=== PATIENT | male | born 1960 | race African-American/Black ===

== ENCOUNTER 2020-05-09 12:02 | Inpatient (IN) | payer MEDICAID, OTHER ==
[~2020-05-09] VITALS: Ht 180.3 cm; Wt 84.1 kg
[2020-05-09 13:17] LABS: BASOPHILS % (AUTO) 0.4 % (0.0-2.0); EOSINOPHILS % (AUTO) 1.3 % (1.0-6.0); HEMATOCRIT 47.4 % (41-53); HEMOGLOBIN 15.7 g/dL (13.5-17.5); LYMPHOCYTES # (AUTO) 1.8 K/uL (1.0-4.8); LYMPHOCYTES % (AUTO) 24.2 % (22.0-44.0); MEAN CORPUSCULAR HEMOGLOBIN 27.9 pg (26.0-34.0); MEAN CORPUSCULAR HGB CONC 33.1 G/dL (31.0-37.0); MEAN CORPUSCULAR VOLUME 84 fL (80-100); MONOCYTES % (AUTO) 13.1 % (2.0-9.0); NEUTROPHILS # (AUTO) 4.5 K/uL (1.8-7.7); PLATELET COUNT (AUTO) 209 K/uL (150-450); RED BLOOD CELL COUNT(AUTO) 5.61 MIL/uL (4.50-5.90); RED CELL DISTRIBUTION WIDTH 13.4 % (11.5-14.5)
[2020-05-09 13:27] LABS: ANION GAP 5 mmol/L (8-16); CARBON DIOXIDE 29 mmol/L (22-29); CHLORIDE 107 mmol/L (98-107); CREATININE 1.22 mg/dL (0.60-1.30); GLOMERULAR FILTR. RATE CALC > 60 mL/min (>60); GLUCOSE,RANDOM 111 mg/dL (70-110); POTASSIUM 3.8 mmol/L (3.5-5.1); SODIUM SERUM 141 mmol/L (136-145); UREA NITROGEN, BLOOD 14 mg/dL (7-18)
[2020-05-09 13:33] LABS: ALANINE AMINOTRANSFERASE 21 U/L (12-78); ALKALINE PHOSPHATASE 82 U/L (46-116); ASPARTATE AMINOTRANSFERASE 15 U/L (15-37); BILIRUBIN,TOTAL 0.4 mg/dL (0.1-1.0); TOTAL PROTEIN, SERUM 7.6 g/dL (6.4-8.2)
[2020-05-09] MEDS ORDERED: LORazepam 2 MG/ML VIAL IM ONE (15:00)
[2020-05-09] MEDS ORDERED: HALOPERIDOL LACTATE 5 MG/ML VIAL IM ONE (15:00)
[2020-05-09] MEDS ORDERED: ACETAMINOPHEN 500 MG TABLET PO ONE (15:00)
[2020-05-09] MEDS ORDERED: DiphenhydrAMINE HCL 50 MG/ML VIAL IM ONE (15:00)
[2020-05-09 15:58] LABS: COVID AG,FIA SOURCE NASOPHARYNGEAL
[2020-05-09] MEDS ORDERED: HALOPERIDOL 5 MG TABLET PO PRN (18:00)
[2020-05-09] MEDS ORDERED: ZOLPIDEM TARTRATE 10 MG TABLET PO PRN (18:00)
[2020-05-09] MEDS ORDERED: MAG HYDROX/AL HYDROX/SIMETH ES 30 ML SUSPENSION UDCUP PO PRN (21:45)
[2020-05-09] MEDS ORDERED: PETROLATUM,WHITE 28 GM JELLY TP PRN (21:45)
[2020-05-09] MEDS ORDERED: ACETAMINOPHEN 325 MG TABLET PO PRN (21:45)
[2020-05-09] MEDS ORDERED: ALBUTEROL SULFATE HFA 90 MCG/PUFF 8 GM INHALER IH PRN (21:45)
[2020-05-09] MEDS ORDERED: NICOTINE 14 MG/24 HOUR PATCH TD PRN (21:45)
[2020-05-09] MEDS ORDERED: DOCUSATE SODIUM 100 MG CAPSULE PO PRN (21:45)
[2020-05-09] MEDS ORDERED: GuaiFENesin/D-METHORPHAN [SUGAR-FREE] 200-20MG/10 ML SYRUP UDCUP PO PRN (21:45)
[2020-05-09] MEDS ORDERED: MAGNESIUM HYDROXIDE SUSPENSION 30 ML UDCUP PO PRN (21:45)
[2020-05-09] MEDS ORDERED: LOPERAMIDE HCL 2 MG CAPSULE PO PRN (21:45)
[2020-05-09] MEDS ORDERED: IBUPROFEN 400 MG TABLET PO PRN (21:45)
[2020-05-09] MEDS ORDERED: ONDANSETRON HCL 4 MG TABLET PO PRN (21:45)
[2020-05-09] MEDS ORDERED: CloNIDine HCL 0.1 MG TABLET PO PRN (21:45)
[2020-05-10 00:21] VITALS: BP 136/84
[2020-05-10] MEDS ORDERED: INFLUENZA VIRUS VACCINE QVS 2020-21 (6MO+)/PF 60 MCG/0.5 ML SYRINGE IM ONE (00:45)
[2020-05-10] MEDS ORDERED: PNEUMOCOCCAL VACCINE POLYVALENT 0.5 ML VIAL [PPSV23] IM ONE (00:45)
[2020-05-10 08:19] VITALS: BP 131/80
[2020-05-10] MEDS: PARoxetine HCL 20 MG TABLET PO SCH (09:35)
[2020-05-10] MEDS: LORazepam 2 MG TABLET PO PRN (09:35)
[2020-05-10] MEDS ORDERED: DiphenhydrAMINE HCL 50 MG/ML VIAL ONE (10:34)
[2020-05-10] MEDS ORDERED: LORazepam 2 MG/ML VIAL ONE (10:34)
[2020-05-10] MEDS ORDERED: HALOPERIDOL LACTATE 5 MG/ML VIAL ONE (10:34)
[2020-05-10] MEDS ORDERED: HALOPERIDOL LACTATE 5 MG/ML VIAL IM ONE (10:45)
[2020-05-10] MEDS ORDERED: DiphenhydrAMINE HCL 50 MG/ML VIAL IM ONE (10:45)
[2020-05-10] MEDS ORDERED: LORazepam 2 MG/ML VIAL IM ONE (10:45)
[2020-05-10] MEDS: RisperiDONE 2 MG TABLET PO SCH (20:44)
[2020-05-11] MEDS: RisperiDONE 2 MG TABLET PO SCH ×2 (08:58→20:39)
[2020-05-11] MEDS: PARoxetine HCL 20 MG TABLET PO SCH (08:58)
[2020-05-11] MEDS: LORazepam 2 MG TABLET PO PRN (16:16)
[2020-05-11 16:31] VITALS: BP 129/84
[2020-05-12 08:22] VITALS: BP 107/54
[2020-05-12] MEDS: LORazepam 2 MG TABLET PO PRN (08:22)
[2020-05-12] MEDS: PARoxetine HCL 20 MG TABLET PO SCH (08:22)
[2020-05-12] MEDS: RisperiDONE 2 MG TABLET PO SCH (08:22)
[2020-05-12 08:29] LABS: HEMOGLOBIN A1C 5.5 % (3.8-5.6)
[2020-05-12 08:45] LABS: CHOL/HDL RATIO 3.4 (4.2-7.3); FREE T4 (FREE THYROXINE) 0.85 ng/dL (0.76-1.46); THYROID STIMULATING HORMONE 1.35 uIU/mL (0.36-3.74)
[2020-05-12] MEDS ORDERED: RISP2TAB76 PO (09:39)
[2020-05-12] MEDS ORDERED: PARO-37 PO (09:39)
== END 2020-05-12 13:15 | disposition home or self-care (01) | DRG 750 ==
LOC: EMS 12:05 → B3A 17:50
DX: F25.1 Schizoaffective disorder, depressive type (principal); F12.90 Cannabis use, unspecified, uncomplicated; Z20.828 Contact with and (suspected) exposure to other viral communicable diseases; I10 Essential (primary) hypertension; Z79.899 Other long term (current) drug therapy; Z72.89 Other problems related to lifestyle; Z28.21 Immunization not carried out because of patient refusal
CPT/HCPCS: 83036; 84439; 84443; 87426; 90686; G0480; J1200; J1630; J2060